=== PATIENT | female | born 1955 ===

== ENCOUNTER 2017-03-14 06:12 | Day surgery (SDC) | payer OTHER ==
[2017-03-14 06:22] VITALS: BMI 23.6
[2017-03-14] MEDS ORDERED: Lactated Ringer's 1,000 ML IV ONE ×2 (08:10)
[2017-03-14] MEDS ORDERED: Propofol 10 mg/ml Inj (20 ML) ONE (08:13)
[2017-03-14 08:46] VITALS: TEMP 97.3
[2017-03-14 09:15] VITALS: O2SAT 100
[2017-03-14 09:30] VITALS: BP 138/77; PULSE 79; RESP 20
== END 2017-03-14 09:28 | disposition home or self-care (01) ==
LOC: C.ENDO 06:12
PROVIDERS: ATTEND Internal Medicine Gastroenterology
DX: Z12.11 Encounter for screening for malignant neoplasm of colon (principal); K57.30 Diverticulosis of large intestine without perforation or abscess without bleeding; K64.1 Second degree hemorrhoids
CPT/HCPCS: 45378; 82948; J2704; J7120